=== PATIENT | male | born 1960 | race Caucasian/White ===

== ENCOUNTER 2023-09-17 11:03 | Emergency (ER) | payer BC, MEDICARE ==
[~2023-09-17] VITALS: Ht 188 cm; Wt 107.8 kg
[2023-09-17 11:03] VITALS: BP 130/84; TEMP 98.2; O2SAT 99
[2023-09-17] MEDS ORDERED: PROPARACAINE 0.5% OPHTH SOL 15ML OD ONE (11:20)
[2023-09-17] MEDS ORDERED: FLUORESCEIN OPHTH 1MG STRIP OD ONE (11:20)
[2023-09-17] MEDS ORDERED: ERYT5OIN25 OD (12:44)
[2023-09-17] MEDS ORDERED: BOOSTRIX VACCINE (TETANUS/DIPHTH/ACEL. PERTUSSIS) 0.5ML SYR IM.IMMUN ONE (12:45)
== END 2023-09-17 13:14 | disposition home or self-care (01) ==
LOC: M ED 11:03
DX: T15.01XA Foreign body in cornea, right eye, initial encounter (principal); F17.200 Nicotine dependence, unspecified, uncomplicated; Z88.0 Allergy status to penicillin; Y92.009 Unspecified place in unspecified non-institutional (private) residence as the place of occurrence of the external cause; Y93.89 Activity, other specified; Y99.9 Unspecified external cause status; Z79.1 Long term (current) use of non-steroidal anti-inflammatories (NSAID); Z23 Encounter for immunization

== ENCOUNTER 2023-11-27 09:32 | Emergency (ER) | payer MEDICARE ==
[~2023-11-27] VITALS: Ht 185.4 cm; Wt 102.0 kg
[~2023-11-27 09:32] MED LIST: ERYT5OIN25 OD
[2023-11-27 11:28] VITALS: BP 127/82; TEMP 97.3; O2SAT 96
== END 2023-11-27 11:29 | disposition home or self-care (01) ==
LOC: M ED 10:54
DX: S63.92XA Sprain of unspecified part of left wrist and hand, initial encounter (principal); W01.0XXA Fall on same level from slipping, tripping and stumbling without subsequent striking against object, initial encounter; Y92.009 Unspecified place in unspecified non-institutional (private) residence as the place of occurrence of the external cause; Y93.9 Activity, unspecified; Y99.9 Unspecified external cause status; F17.200 Nicotine dependence, unspecified, uncomplicated; Z88.0 Allergy status to penicillin

== ENCOUNTER → 2025-08-09 | Outpatient (CLI) | payer MEDICARE | LOC: M RAD 07:35 | PROVIDERS: ATTEND Nurse Practitioner Family | DX: Z13.6 Encounter for screening for cardiovascular disorders (principal); F17.210 Nicotine dependence, cigarettes, uncomplicated ==